=== PATIENT | female | born 1995 | race Hispanic/Latino ===

== ENCOUNTER 2022-03-02 10:53 | Emergency (ER) | payer OTHER ==
[2022-03-02] MEDS ORDERED: DULO1CAP4 PO (11:37)
[2022-03-02 12:02] VITALS: BP 122/82
== END 2022-03-02 14:50 | disposition home or self-care (01) ==
LOC: M ED 10:53
DX: Z04.1 Encounter for examination and observation following transport accident (principal); S80.01XA Contusion of right knee, initial encounter; V43.12XA Car passenger injured in collision with other type car in nontraffic accident, initial encounter; Y92.481 Parking lot as the place of occurrence of the external cause; Y93.89 Activity, other specified; Y99.8 Other external cause status; M25.511 Pain in right shoulder; Z79.899 Other long term (current) drug therapy; Z98.890 Other specified postprocedural states